=== PATIENT | female | born 1975 | race Caucasian/White ===

== ENCOUNTER 2018-10-16 19:26 | Emergency (ER) | payer OTHER ==
--- NOTE | 2018-10-16 20:17 | UC ---
Abdominal Pain Female HPI - HPI Summary HPI Summary: Patient is a 43 year old woman , who present today to the urgent care with upper abdominal pain for past 2 days. she reports that in is mainly located in the epigastrium and there is associated nausea but she hasn't had no episode of vomiting until she was in the urgent care and had one episode of nonbilious non-bloody vomiting.describes it as a burning pain. Denied any different food intake from others in the family and nobody else is sick and does not feel it is food poisoning. Had some loose bowel movements but nothing significant. She has been able to take and hold down food and liquids by mouth. it slightly got better during the day today but got worse again in the afternoon. She feels full after eating. Denies any urinary or vaginal symptoms. no fever reported - History of Current Complaint Chief Complaint: UCGI Stated Complaint: BACK PAIN,NAUSEA Time Seen by Provider: 10/16/18 20:00 Hx Obtained From: Patient ?: No - IUD Pain Intensity: 7 Allergies/Adverse Reactions: Allergies Allergy/AdvReac Type Severity Reaction Status Date / Time No Known Allergies Allergy Verified 10/16/18 19:51 PMH/Surg Hx/FS Hx/Imm Hx - Additional Past Medical History Additional PMH: GERD Family history is noncontributory Previously Healthy: Yes - Surgical History Surgical History: Yes Surgery Procedure, Year, and Place: csection - Social History Alcohol Use: Occasionally Substance Use Type: None Smoking Status (MU): Never Smoked Tobacco Review of Systems All Other Systems Reviewed And Are Negative: Yes Constitutional: Positive: Negative Skin: Positive: Negative Eyes: Positive: Negative ENT: Positive: Negative Respiratory: Positive: Negative Cardiovascular: Positive: Negative Gastrointestinal: Positive: Abdominal Pain - epigastric area, Vomiting, Diarrhea , Nausea Genitourinary: Positive: Negative. Negative: Dysuria, Hematuria, Frequency Motor: Positive: Negative Neurovascular: Positive: Negative Musculoskeletal: Positive: Negative Neurological: Positive: Negative Psychological: Positive: Negative Is Patient Immunocompromised?: No Physical Exam - Summary Physical Exam Summary: Physical Exam: Const: Appears well. No signs of apparent distress present. Alert and oriented x 3. Musculo: Walks with a normal gait. Head/Face: Atraumatic, normocephalic on inspection. Eyes: EOMI and PERRLA in both eyes. Conjunctivae clear. No discharge noted ENT: Hearing normal Respiratory: Respirations are unlabored. Lungs clear to auscultation bilaterally, no wheezing , rhonchi or rales noted . CVS: Regular rate and Rhythm, S1S2 normal , no murmurs identified. Extremities: Peripheral circulation is grossly normal. Pulses 2+ Abdomen : Soft . there is tenderness to palpation in the epigastric area mainly. nondistended , Bowel sounds present . mild guarding but no rebound tenderness or rigidity noted. no McBurney point tenderness noted. Rajan's sign is negative. Skin: No lesions or rash located on the upper extremities or on the lower extremities. Neuro: Cranial nerves II to XII intact, motor and sensory intact. DTR Intact bilaterally. Mood is normal. Affect is normal. Triage Information Reviewed: Yes Vital Signs: Initial Vital Signs Temp 98.0 F 10/16/18 19:42 Pulse 52 10/16/18 19:42 Resp 20 10/16/18 19:42 BP 142/85 10/16/18 19:42 Pulse Ox 100 10/16/18 19:42 Vital Signs Reviewed: Yes Abd Pain Female Course/Dx - Course Course Of Treatment: During the visit today, we discussed the findings which appeared to be consistent with gastroenteritis which can be viral. does not appear to be cholecystitis. She was given 1 dose of Zofran and dose of pantoprazole and famotidine. she still continued to have some nausea but wants to go home and feels fine to go home. she was given 1 more dose of Zofran to take home. She has omeprazole at home which she will start taking. I have prescribed Zantac as well to the pharmacy. We discussed her urinalysis results 3+ blood and 1+ leukoesterase positive. She feels that she is spotting so that could be the reason for blood on urine and she denies any urinary symptoms so we plan to hold off treating at this time. If culture comes back positive then she can be treated at that time. Patient expressed understanding . - Differential Dx/Diagnosis Provider Diagnosis: Gastritis, Gastroenteritis Discharge - Sign-Out/Discharge Documenting (check all that apply): Patient Departure All imaging exams completed and their final reports reviewed: No Studies - Discharge Plan Condition: Stable Disposition: HOME Prescriptions: Ondansetron TAB* [Zofran 4 MG Tab*] 4 mg PO Q6H PRN 7 Days #30 tab PRN Reason: Nausea Ranitidine TAB (NF) [Zantac TAB (NF)] 150 mg PO BID 15 Days #30 tab Patient Education Materials: Gastroenteritis (ED) Referrals: Estela Young MD [Primary Care Provider] - 2 Days Additional Instructions: Please start taking the medication as prescribed to the pharmacy . Follow up with your primary care doctor in 2 -3 days Patients blood pressure slightly high in Urgent care today , plan follow up with PCP for better control within a month Return to Urgent care / ER if symptoms get worse. - Billing Disposition and Condition Condition: STABLE Disposition: Home
[2018-10-16] MEDS ORDERED: Ondansetron ODT TAB* 4 MG PO ONE ×2 (20:31→21:38)
[2018-10-16] MEDS ORDERED: Pantoprazole TAB * 40 MG TAB PO ONE (20:31)
[2018-10-16] MEDS ORDERED: Famotidine TAB* 20 MG PO ONE (21:39)
[2018-10-16 21:51] VITALS: BP 148/82
== END 2018-10-16 21:50 | disposition home or self-care (01) ==
LOC: UCEAST 19:26
DX: K29.70 Gastritis, unspecified, without bleeding (principal); K52.9 Noninfective gastroenteritis and colitis, unspecified; R11.0 Nausea; K21.9 Gastro-esophageal reflux disease without esophagitis
CPT/HCPCS: 81003; 87086; 99213; A9270-GY; G0463

== ENCOUNTER 2018-10-25 18:30 | Emergency (ER) | payer OTHER ==
--- OUTSIDE RECORDS SUMMARY | 2018-10-25 18:34 | XMS REPORT | Continuity of Care Document ---
:1975 External Reference #:[id number] Author Name JAIME Soto Address [address] [facility] [place] [address] Care Team Providers Name Role Phone Estela Yuong Care Team Information Typesetting Machine Operator/Tender Unavailable Estela Young Primary Care Physician Unavailable Payers Date Identification Numbers Payment Provider Subscriber Effective: 2017 Policy Number: [id number] [facility] Casey Norton Group Number: [id number] [id number] Group Name: [place] [address] PayID: [id number] Advance Directives Description No Information Available Problems Active Problems Provider Date Intrinsic asthma without status asthmaticus Estela Young M.D. Onset: Family History Date Family Member(s) Observation Comments Father HTN Mother Obesity/ Diabetes/ Depression Number of Children 1 First Daughter healthy. Number of Siblings Siblings: 2 Paternal Grandmother due to Heart Disease () Maternal Grandfather due to Lung Cancer () Maternal Grandmother due to Breast Cancer () Maternal Grandmother due to Lung Cancer () Social History Type Date Description Comments Sex Unknown Education Highest level of education completed is a master's degree Marital Status Patient is Living Situation Lives with spouse and daughter Occupation [employer] Tobacco Use Start: Unknown occ cig 2 a week or less ETOH Use Currently consumes 2 beers three times alcohol a week. Tobacco Use Start: Unknown Nonsmoker Smoking Status Reviewed: 02/03/18 Nonsmoker Exercise Type/Frequency Exercises regularly Current Seat Belt/Car Seat Always uses a seat belt Allergies, Adverse Reactions, Alerts Active Allergies Reaction Severity Comments Date NKDA 03/02/2012 Bee Sting 04/26/2006 Medications Active Medications SIG Qnty Indications Ordering Provider Date Combivent Respimat 1 puff every 4 12gm Bairon Gonzales 04/08/2018 hours as needed MD Nazanin 20-100mcg/Act Aerosol cough Flovent HFA 1 puff twice a 12gm Bairon Gonzales 04/08/2018 110mcg/Act day MD Nazanin Aerosol Spacer For Mdi use with mdi Bairon Gonzales 04/08/2018 MD Nazanin Xanax 1 po 30-60 min 10tabs [facility], 11/16/2017 0.5mg Tablets prior to flying Afnp-C Ranitidine HCL 1 by mouth every 30tabs [facility], 06/04/2017 300mg day as needed Afnp-C Tablets Ventolin HFA 2 puffs qd-qid 1units J20.0 [facility], 04/24/2015 prn wheeze, sob Afnp-C 108(90Base) mcg/Act Aerosol J20.9 Sertraline HCL take one /half to 30tabs F32.9 [facility], 07/30/2009 50mg Tablets one tablet by Afnp-C mouth every day Ondansetron HCL 1 by mouth every Unknown 4mg Tablets 6h as needed nausea History Medications Azithromycin take [address] tablets [address]20.[address], 12/30/2016 - 250mg by mouth today [facility] 11/16/2017 Tablets then take 1 tablet daily for next 4 days Ranitidine HCL 1 by mouth every 30tabs [facility] 11/30/2016 - 300mg day prn Carolee Bautista-C 12/30/2016 Tablets Carafate 1 by mouth three 90tabs K25.[address], 07/17/2015 - 1gm Tablets times a day [facility] 11/30/2016 prior to meals Diazepam 1 by mouth twice 5tabs Z30.8 Kavita 04/12/2015 - 2mg Tablets a day as needed Nadia [facility] 07/17/2015 anxiety Pantoprazole Sodium 1 by mouth every 30tabs K21.9 Esme Franklin, 2014 - day Afnp-C 11/30/[address] Millard 1 by mouth x1 1tabs [facility] 11/20/2014 - 150mg Damien Bautista 11/21/2014 Tablets Azithromycin 2 po today. 1 6tabs 466.0 Lorena Domingo, 06/03/2013 - 250mg po daily x 4 [employer] 02/05/2014 Tablets Please Excuse From Lyme disease. 088.81 Estela Christen 11/19/2012 - Work. Medical Diana Young 06/03/2013 Excuse. Doxycycline 1 po bid ( 12 14tabs Estela Christen 11/06/2012 - Monohydrate hours apart) Diana Young 06/03/2013 100mg can eat 1 hour Tablets later. 3 weeks. Azithromycin 2 po today. 1 6tabs 466.0 Lorena Domingo, 08/18/2012 - 250mg po daily x 4 [employer] 11/04/2012 Tablets Medrol Dosepak take as directed 1PK 493.12 Estela Velásquez 06/12/2011 - 4mg Diana Young 03/02/2012 Tablets Azithromycin 2 po today. 1 6tabs 493.12 Estela Christen 06/12/2011 - 250mg po daily x 4 Diana Young 03/02/2012 Tablets Azithromycin take 2 tablets 6tabs 466.0 Lorena Domingo, 05/25/2011 - 250mg by mouth today [employer] 06/12/2011 Tablets then take 1 tablet daily for next 4 days Ventolin HFA 2 puffs qd-qid 1units 466.0 Lorena Domingo, 05/25/2011 - [employer] 04/24/2015 108(90Base) mcg/ac Aerosol Zoloft 2 po qd 60tabs 311 Lornea Domingo, 02/08/2009 - 50mg Tablets [employer] 07/30/2009 Zoloft 1 1/2 tab pO qd 45tabs [facility] 10/31/2008 - 50mg Tablets Damien Bautista 02/08/2009 Vitamins 1 po qd 100units Payton 06/27/2008 - Damien Bautista 06/12/2011 Cleocin T apply To 60gm Payton 08/18/2006 - 1% Gel Affected Area qd Damien Bautista 10/11/2012 Cleocin-T apply qd to 60gm Payton 08/18/2006 - 1% Gel affected area MarcoslincolnjayjayDamien 05/08/2014 Azelex wash 30gm Payton 06/30/2006 - 20% Cream face/dry/then LilyDamien 03/07/2015 apply small amount to face every day to twice a day Fluoxetine 2 po qam 120caps Payton 04/26/2006 - 20mg MarcoslincolnjayjayDamien 10/31/2008 Capsules Albuterol Mdi 2 Puffs Q4H prn 1units 493.00 Esme Franklin, 04/26/2006 - Cough Or Wheeze Damien 05/25/2011 Minocycline 1 po bid 60caps Payton 04/26/2006 - 100mg Jean PauljayjayDamien 12/04/2008 Capsules Immunizations CPT Code Status Date Vaccine Lot # [id number] Given 11/16/2017 Tetanus And Diptheria Adult Preservative Free [id number] >[id number] Given 03/27/2008 Tdap Tetanus, W Pertussis [id number] Vital Signs Date Vital Result Comment 10/19/2018 9:17am BP Systolic 110 mmHg BP Diastolic 60 mmHg Heart Rate 78 /min Body Temperature 98.8 F Respiratory Rate 16 /min Height 64.5 inches 5'4.50" Weight 150.12 lb BMI (Body Mass Index) 25.4 kg/m2 05/02/2018 8:48am BP Systolic 104 mmHg BP Diastolic 64 mmHg Heart Rate 64 /min Body Temperature 97.0 F Respiratory Rate 16 /min Weight 152.00 lb 04/08/2018 8:35am BP Systolic 110 mmHg BP Diastolic 70 mmHg Heart Rate 68 /min Body Temperature 98.9 F Respiratory Rate 22 /min O2 % BldC Oximetry 100 % Ra Weight 149.50 lb 02/03/2018 8:51am BP Systolic 110 mmHg BP Diastolic 70 mmHg Heart Rate 60 /min Body Temperature 97.9 F Respiratory Rate 16 /min Height 64.5 inches 5'4.50" Weight 146.00 lb BMI (Body Mass Index) 24.7 kg/m2 11/16/2017 10:21am BP Systolic 112 mmHg BP Diastolic 74 mmHg Heart Rate 64 /min Body Temperature 98.1 F Height 64.5 inches 5'4.50" Weight 146.00 lb BMI (Body Mass Index) 24.7 kg/m2 12/30/2016 3:53pm BP Systolic 102 mmHg BP Diastolic 78 mmHg Heart Rate 72 /min Body Temperature 98.6 F Height 64.5 inches 5'4.50" Weight 149.00 lb BMI (Body Mass Index) 25.2 kg/m2 11/30/2016 9:16am BP Systolic 102 mmHg BP Diastolic 60 mmHg Heart Rate 64 /min Body Temperature 99.0 F Respiratory Rate 16 /min Height 64.5 inches 5'4.50" Weight 148.38 lb BMI (Body Mass Index) 25.1 kg/m2 07/31/2015 4:28pm BP Systolic 104 mmHg BP Diastolic 62 mmHg Heart Rate 72 /min Body Temperature 98.2 F Respiratory Rate 16 /min Height 64.5 inches 5'4.50" Weight 156.50 lb BMI (Body Mass Index) 26.4 kg/m2 07/17/2015 4:21pm BP Systolic 90 mmHg BP Diastolic 60 mmHg Heart Rate 60 /min Body Temperature 98.1 F Respiratory Rate 16 /min Height 64.5 inches 5'4.50" Weight 156.50 lb BMI (Body Mass Index) 26.4 kg/m2 05/06/2015 4:16pm BP Systolic 124 mmHg BP Diastolic 80 mmHg Heart Rate 68 /min Body Temperature 97.9 F Respiratory Rate 16 /min Height 64.5 inches 5'4.50" Weight 154.00 lb BMI (Body Mass Index) 26.0 kg/m2 04/12/2015 3:26pm BP Systolic 126 mmHg BP Diastolic 82 mmHg Heart Rate 66 /min Body Temperature 99.0 F Respiratory Rate 16 /min Height 64.5 inches 5'4.50" Weight 154.25 lb BMI (Body Mass Index) 26.1 kg/m2 03/07/2015 1:52pm BP Systolic 112 mmHg BP Diastolic 70 mmHg Heart Rate 62 /min Body Temperature 98.7 F Respiratory Rate 16 /min Height 64.5 inches 5'4.50" Weight 151.00 lb BMI (Body Mass Index) 25.5 kg/m2 11/20/2014 3:26pm BP Systolic 90 mmHg BP Diastolic 58 mmHg Heart Rate 64 /min Body Temperature 97.5 F Respiratory Rate 16 /min Height 64.5 inches 5'4.50" Weight 147.00 lb BMI (Body Mass Index) 24.8 kg/m2 05/08/2014 2:31pm BP Systolic 92 mmHg BP Diastolic 62 mmHg Heart Rate 68 /min Body Temperature 97.8 F Height 64.5 inches 5'4.50" 02/05/2014 9:35am BP Systolic 102 mmHg BP Diastolic 64 mmHg Heart Rate 60 /min Respiratory Rate 16 /min Height 64.5 inches 5'4.50" Weight 135.00 lb BMI (Body Mass Index) 22.8 kg/m2 06/03/2013 9:05am BP Systolic 100 mmHg BP Diastolic 70 mmHg Heart Rate 72 /min Body Temperature 98.0 F Respiratory Rate 16 /min Height 64.5 inches 5'4.50" Weight 150.00 lb BMI (Body Mass Index) 25.3 kg/m2 11/19/2012 10:08am BP Systolic 98 mmHg BP Diastolic 60 mmHg Heart Rate 64 /min Body Temperature 98.8 F Height 64.5 inches 5'4.50" Weight 146.00 lb BMI (Body Mass Index) 24.7 kg/m2 11/04/2012 10:42am BP Systolic 118 mmHg BP Diastolic 70 mmHg Heart Rate 80 /min Body Temperature 99.2 F Respiratory Rate 20 /min O2 % BldC Oximetry 94 % Height 64.5 inches 5'4.50" Weight 145.00 lb BMI (Body Mass Index) 24.5 kg/m2 08/18/2012 3:59pm BP Systolic 108 mmHg BP Diastolic 70 mmHg Heart Rate 70 /min Body Temperature 98.4 F Respiratory Rate 18 /min Height 64.5 inches 5'4.50" Weight 149.00 lb BMI (Body Mass Index) 25.2 kg/m2 03/02/2012 4:42pm BP Systolic 104 mmHg BP Diastolic 70 mmHg Heart Rate 66 /min Body Temperature 98.9 F Height 64.5 inches 5'4.50" Weight 144.00 lb BMI (Body Mass Index) 24.3 kg/m2 06/12/2011 1:47pm BP Systolic 90 mmHg BP Diastolic 56 mmHg Heart Rate 68 /min Body Temperature 98.4 F Respiratory Rate 20 /min Height 64.5 inches 5'4.50" Weight 153.00 lb BMI (Body Mass Index) 25.9 kg/m2 05/25/2011 2:12pm BP Systolic 100 mmHg BP Diastolic 70 mmHg Heart Rate 68 /min Body Temperature 98.2 F Height 64.5 inches 5'4.50" Weight 152.00 lb BMI (Body Mass Index) 25.7 kg/m2 11/18/2010 10:09am BP Systolic 100 mmHg BP Diastolic 70 mmHg Heart Rate 60 /min Body Temperature 98.6 F Height 64.5 inches 5'4.50" Weight 145.00 lb BMI (Body Mass Index) 24.5 kg/m2 11/19/2009 1:10pm BP Systolic 90 mmHg BP Diastolic 60 mmHg Heart Rate 72 /min Body Temperature 99.3 F Respiratory Rate 20 /min Weight 150.00 lb 02/08/2009 3:32pm BP Systolic 100 mmHg BP Diastolic 70 mmHg Heart Rate 72 /min Weight 141.00 lb 12/04/2008 9:22am BP Systolic 100 mmHg BP Diastolic 62 mmHg Heart Rate 68 /min Height 64.5 inches 5'4.50" Weight 146.00 lb BMI (Body Mass Index) 24.7 kg/m2 06/27/2008 6:19pm BP Systolic 110 mmHg BP Diastolic 68 mmHg Heart Rate 64 /min Height 64.5 inches 5'4.50" Weight 148.00 lb BMI (Body Mass Index) 25.0 kg/m2 03/27/2008 2:36pm BP Systolic 100 mmHg BP Diastolic 70 mmHg Heart Rate 68 /min Body Temperature 98.9 F Height 64.5 inches 5'4.50" Weight 138.00 lb BMI (Body Mass Index) 23.3 kg/m2 09/21/2007 5:58pm BP Systolic 102 mmHg BP Diastolic 60 mmHg Heart Rate 66 /min Height 64.5 inches 5'4.50" Weight 140.00 lb BMI (Body Mass Index) 23.7 kg/m2 05/27/2007 4:27pm BP Systolic 122 mmHg BP Diastolic 70 mmHg Body Temperature 99.6 F Height 64.5 inches 5'4.50" Weight 142.00 lb BMI (Body Mass Index) 24.0 kg/m2 09/29/2006 7:33pm BP Systolic 100 mmHg BP Diastolic 60 mmHg Heart Rate 72 /min Height 64.5 inches 5'4.50" Weight 150.00 lb BMI (Body Mass Index) 25.3 kg/m2 08/18/2006 6:05pm BP Systolic 102 mmHg BP Diastolic 70 mmHg Heart Rate 68 /min Height 64.5 inches 5'4.50" Weight 150.00 lb BMI (Body Mass Index) 25.3 kg/m2 06/30/2006 8:12pm BP Systolic 100 mmHg BP Diastolic 60 mmHg Heart Rate 72 /min Respiratory Rate 12 /min Height 64.5 inches 5'4.50" 04/26/2006 6:43pm BP Systolic 102 mmHg BP Diastolic 70 mmHg Heart Rate 80 /min Height 64.5 inches 5'4.50" Weight 149.00 lb BMI (Body Mass Index) 25.2 kg/m2 Results Test Date Facility Test Result H/L Range Note Ua - Micro (a) 10/19/2018 [facility] Appearance yellow (607)- - Color clear Glucose, Urine ([facility]) neg Bilirubin neg Ketones neg SP Grav 1.010 Blood mod # PH 6.5 Protein neg Urobil 0.2 Nitrite neg Leukocytes ([facility]) neg Hyaline - /Lpf Granular - /Lpf WBC ([facility]) 1-2 # RBC 6-8 # Mucus ([facility]) - /Lpf Epith few /Lpf # Bacteria trace /Hpf # Amorphous (a/[facility]) - /Lpf Crystals, Fluid (a/CMC/CTX) - Z#Comments - Urine Culture And 10/16/2018 [facility] Urine Culture SEE RESULT BELOW 1, 2 Sensitivities Poc Urinalysis 10/16/2018 [facility] Poc Glucose, Negative Negative Urine Poc Bilirubin, Urine Negative Negative Poc Ketone, Urine Negative Negative Poc Specific Tarpley, Urine 1.010 N 1.010-1.030 Poc Blood, Urine 3+ Abnormal Negative Poc pH, Urine 5.0 N 5-9 Poc Protein, Urine Negative Negative Poc Urobilinogen, Urine 0.2 Negative Poc Nitrite, Urine Negative Negative Poc Leukocytes, Urine 1+ Abnormal Negative Poc Color, Urine Yellow Poc Clarity, Urine Clear 3 Laboratory test 02/03/2018 [facility] Cytology Thinprep SEE RESULT 4 [place] [place] [place] BELOW Comprehensive 11/16/2017 [facility]ore([facility]) Sodium 141 mEq/L 134-14 Metabolic Prof 9 Potassium 4.1 mEq/L 3.6-5.5 Chloride 103 mEq/L 94-112 Carbon Dioxide 27 mEq/L 21-32 Glucose 86 mg/dL 70-105 BUN 9 mg/dL 6-26 Creatinine 0.5 mg/dL Low 0.6-1.4 BUN/Creat Ratio 18.0 CALC 8.0-36.0 Calcium 9.3 mg/dL 8.6-10.2 Total Protein 7.3 g/dL 6.4-8.3 Albumin 4.5 g/dL 3.8-5.5 Globulin 2.8 g/dL 2.0-4.8 A/G Ratio 1.6 CALC 0.6-2.3 Alk. Phosphatase 34 U/L 30-110 Alt (SGPT) 12 U/L 7-35 Ast (Sgot) 19 U/L 5-34 Total Bilirubin 0.5 mg/dL 0.2-1.3 GFR Non- >60 ml/min/1.73m^ >=60 GFR >60 ml/min/1.73m^ >=60 CBC Electronic a 11/16/2017 Randall Lenore([facility]) WBC 8.8 x10^3/UL 4.0- 10.0 RBC 4.22 x10^6/UL 3.93-6.00 HGB 13.7 g/dL 12.0-17.0 HCT 41 % 35-50 MCV 97.6 fL High 80.0-95.0 5 MCH 32.5 pg High 25.6-32.2 MCHC 33.3 g/dL 32.2-36.0 RDW-CV 12.6 % 11.6-14.4 PLT 275 x10^3/UL 163-400 MPV 10.7 fL 9.4-12.4 Bianca# 6.50 x10^3/UL High 1.56-6.13 Lymph# 1.47 x10^3/UL 1.18-3.74 Newberry# 0.54 x10^3/UL 0.24-0.82 Eos # 0.2 x10^3/UL 0.0-0.5 Baso # 0.06 x10^3/UL 0.01-0.08 Bianca% 74.1 % High 34.0-70.0 Lymph % 16.8 % Low 20.0-52.0 Newberry% 6.2 % 5.0-12.0 Eos% 2.1 % 0.7-7.0 Baso% 0.7 % 0.1-1.2 Laboratory test 09/27/2015 [facility] Clotest SEE RESULT 6 finding BELOW H.Pylori, Igg/Iga 07/17/2015 [facility] H. pylori, IgA <9.0 units 0.0-8.9 7, [address] [place] [address] (607)- - H. pylori, IgG Abs <0.9 U/mL 0.0-0.8 9 Complete Blood Count 07/17/2015 P[facility] Lenore(a) WBC 8.5 x10^3/UL 3.6 -9.6 RBC 3.82 x10^6/UL Low 3.90-5.70 HGB 11.5 g/dL Low 12.1-17.2 HCT 34 % Low 36-50 MCV 90.0 fL 82.2-97.4 MCH 30.2 pg 27.6-33.3 MCHC 33.6 g/dL 33.0-35.5 RDW 16.0 % High 11.6-13.7 PLT 280 x10^3/UL 150-400 MPV 7.9 fL 7.4-10.4 Gran # 6.2 x10^3/UL 1.5-7.2 Lymph# 2.0 x10^3/UL 0.7-4.9 Newberry# 0.3 x10^3/UL 0.1-0.9 Gran % 71.5 % 42.2-75.2 Lymph % 24.7 % 20.5-51.1 Newberry% 3.8 % 1.7-9.3 Laboratory test 05/17/2015 [facility] Surgical SEE RESULT 10 finding Pathology BELOW Complete Blood 11/27/2014 P[facility] Lenore(fma) WBC 5.8 x10^3/UL 3.6-9.6 Count RBC 3.99 x10^6/UL 3.90-5.70 HGB 12.0 g/dL Low 12.1-17.2 HCT 36 % 36-50 MCV 91.0 fL 82.2-97.4 MCH 30.1 pg 27.6-33.3 MCHC 33.2 g/dL 33.0-35.5 RDW 15.7 % High 11.6-13.7 PLT 276 x10^3/UL 150-400 MPV 7.4 fL 7.4-10.4 Gran # 3.6 x10^3/UL 1.5-7.2 Lymph# 1.9 x10^3/UL 0.7-4.9 Newberry# 0.3 x10^3/UL 0.1-0.9 Gran % 60.8 % 42.2-75.2 Lymph % 34.0 % 20.5-51.1 Newberry% 5.2 % 1.7-9.3 Comprehensive Metabolic 11/27/2014 Prakash Lenore([facility]) Sodium 134 mEq/L 134-149 Prof Potassium 4.2 mEq/L 3.6-5.5 Chloride 94 mEq/L 94-112 Carbon Dioxide 24 mEq/L 21-32 Glucose 90 mg/dL 70-105 BUN 13 mg/dL 6-26 Creatinine 0.6 mg/dL 0.6-1.4 BUN/Creat Ratio 21.7 CALC 8.0-36.0 Calcium 8.8 mg/dL 8.6-10.2 Total Protein 7.0 g/dL 6.4-8.3 Albumin 4.3 g/dL 3.8-5.5 Globulin 2.7 g/dL 2.0-4.8 A/G Ratio 1.6 CALC 0.6-2.3 Alk. Phosphatase 25 U/L Low 30-110 11 Alt (SGPT) 10 U/L 7-35 Ast (Sgot) 15 U/L 5-34 Total Bilirubin 0.3 mg/dL 0.2-1.3 Lipid Profile 11/27/2014 Prakash Lenore([facility]) Cholesterol 149 mg/dL 120- 200 Triglycerides 78 mg/dL 30-200 HDL Cholesterol 54 mg/dL 30-85 LDL (Calculated) 79 CALC 0-129 VLDL Cholesterol 16 mg/dL 0-50 HDL Risk Factor 2.8 CALC 0.0-4.4 Laboratory test 11/27/2014 Prakash Lenore([facility]) TSH 1.36 mIU/L 0.50-6.00 12 finding Laboratory test 11/20/2014 [facility] Cytology SEE RESULT 13 finding BELOW Influenza A&B-fma 05/08/2014 [facility] Medicine Influenza A negative (607)- - Influenza B negative Vitamin D, 25 Hydroxy 11/19/2012 [facility] 25-Hydroxy Vitamin D2 <4.0 ng/mL 25-Hydroxy Vitamin D3 36 ng/mL 25-Hydroxy Vitamin D Total 36 ng/mL 14 Laboratory test 11/19/2012 Prakash Lenore([facility]) B12 789 pg/mL 230-1050 finding Ehrlichia Igg & 11/08/2012 [facility] Anaplasma <1:64 <1:64 15 Igm Abs phagocytophila IgG titer Ehrlichia chaffeensis IgG AB <1:64 titer <1:64 16 Laboratory test finding 11/08/2012 [facility] Lyme Disease Serology Positive Negative 17 Babesiosis Evaluation <1:64 titer <1:64 18 Lyme Western Blot 11/08/2012 [facility] Lyme Disease IgG Ab WB Negative Negative Lyme Disease IgG Bands Present No bands detecte <SEE NOTE> kDa 19 Lyme Disease IgM Ab WB Positive Negative Lyme Disease IgM Bands Present p41, p39, p23, kDa Lyme Disease Interpretation See Comment 20 CBC Electronic ([facility]) 11/08/2012 [facility] WBC 4.5 3.6-9.6 (607)- - RBC 3.95 3.90-5.70 Hemoglobin (Fma/[facility]) 11.7 g/dL Low 12.1 - 17.2 Hematocrit (a/CMC/CTX) 35.6 % Low 36.1 - 50.3 Platelets 239 10^3/ul 150-400 Lymph% 40.0 20.5-51.1 Mixed% 5.1 Neutrophils % 54.9 Mean Corpuscular Vol 90 82.2-97.4 Mean Corpuscular Hemoglobin 29.6 27.6-33.3 Mean Corpuscular Hemo Concen 32.9 32.0-36.0 RDW 12.2 11.6-13.7 Mean Platelet Volume 7.1 6.5-11.0 Comprehensive Metabolic 11/08/2012 Randall Lenore([facility]) Albumin 4.3 g/dL 3.8-5.5 Prof Alk. Phos. 62 U/L 30-110 Alt (SGPT) 55 U/L High 7-35 Ast (Sgot) 41 U/L High 5-34 BUN 7 mg/dL 6-26 Calcium 9.0 mg/dL 8.6-10.2 Chloride 94 mEq/L 94-112 Creatinine 0.6 mg/dL 0.6-1.4 Carbon Dioxide 26 mEq/L 21-32 Glucose 146 mg/dL High 70-105 21 Sodium 134 mEq/L 134-149 Total Bilirubin 0.3 mg/dL 0.2-1.3 Total Protein 7.0 g/dL 6.3-8.1 Potassium 3.5 mEq/L Low 3.6-5.5 Globulin 2.7 g/dL 2.0-4.8 A/G Ratio 1.6 Calc 0.6-2.3 BUN/Creat Ratio 11.9 Calc 8.0-36.0 Influenza A&B 11/04/2012 [facility] Influenza A NEG (607)- - Influenza B NEG Ua - Non Micro (Fma) 11/18/2010 [facility] Appearance CLEAR (607)- - Color YELLOW Glucose NEG Bilirubin NEG Ketones NEG SP Grav 1.010 Blood NEG PH 7.0 Protein NEG Urobil 0.2 Nitrite NEG Leukocytes ([facility]ma/[facility]) NEG Laboratory test 11/18/2010 [facility] Thin Prep SEE NOTE 22 finding 28 [facility] W/HPV(Lsil/VIRY/Asc) [place], [place] [id number] [phone] Vaginitis Dna 11/18/2010 [facility] Screen Trichomonas NEGATIVE Probe Screen 28 [facility] Vaginalis Dna [place], [place] [id number] [phone] Screen Gardnerella Vaginalis Dna NEGATIVE Screen Gege Species Dna NEGATIVE Ua - Non Micro (Fma) 03/27/2008 [facility] Appearance CLEAR (607)- - Color YELLOW Glucose NEG Bilirubin NEG Ketones NEG SP Grav 1.015 Blood NEG PH 7.0 Protein NEG Urobil 0.2 Nitrite NEG Leukocytes (Fma/[facility]) NEG Laboratory test 03/27/2008 [facility] Thin Prep SEE NOTE 23 finding 28 [facility] W/HPV(Lsil/VIRY/Asc) [place], [place] [id number] [phone] CBC 10/08/2006 [facility] WBC 5.7 3.6- Electronic-ALL (607)- - 9.6 Lab Compani RBC 3.96 3.90-5.70 Hemoglobin (Fma/[facility]/CTX) 12.8 g/dL 12.1 - 17.2 Hematocrit (Fma/CMC/CTX) 37 % 36.1 - 50.3 Mean Corpuscular Vol 94.5 82.2-97.4 Mean Corpuscular Hemaglobin 32.2 27.6-33.3 Mean Corpuscular Hemo Concen 34.1 33.0-36.0 RDW 12.1 11.6-13.7 Platelets 231 10^3/ul 150-400 Mean Platelet Volume 9.4 7.4-10.4 Neutrophils % - Lymphocytes % 27.0 % 20.5 - 51.1 Monocytes % 7.4 % 1.7-9.3 Eosinophil - Basophil% - Abs Neutrophils - Abs Lymphs - Abs Mononuclear - Abs Eosinophils - Abs Basophils - Basic Metabolic-ALL 10/08/2006 [facility] Glucose, Serum 87 mg/dL 70-105 [facility] (607)- - (Fma/CMC/CTX) BUN (Fma/[facility]) 11 mg/dL 6-26 Creatinine (Fma/[facility]/CTX) 0.6 mg/dL 0.6-1.4 Sodium 135 134-149 Potassium 4.3 3.6-5.5 Chloride 102 mEq/L 94-112 Co2 26 21-32 Calcium (Fma/[facility]) 8.6 mg/dL 8.6-10.2 Lipid Panel-ALL 10/08/2006 [facility] Cholesterol 139 mg/dL 120- 200 [facility] (607)- - (Fma/[facility]) HDL-Chol 49 mg/dL 30-85 Triglyceride 58 mg/dL 30-200 LDL/HDL Chol. Ratio (F/C/CTX) - Chol./HDL Ratio (Fma/CMC/CTX) - Low 30-85 LDL, Calculated ([facility]) 79 mg/dL 0-129 HDL Risk Factor (Fma) 2.8 CALC Low 4.2-7.0 Laboratory test 10/08/2006 [facility] Free T4 0.86 ng/dL 0.75-1.54 finding (607)- - (Fma/[facility]) TSH (Fma/[facility]) 1.28 uIU/ml 0.5-6.0 GC/Chlamydia Probe, 09/29/2006 [facility] Chlamydia NEGATIVE Urine 28 [facility] [place] [address] [phone] GC Amplified Probe NEGATIVE Laboratory test 09/29/2006 [facility] Thinprep Pap SEE IMAGE finding [address] [place] [address] VIRY/ASCUS [phone] Ua - Micro (Fma) 09/29/2006 [facility] Appearance CLEAR (607)- - Color LT YELLOW Glucose NEG Bilirubin NEG Ketones NEG SP Grav <=1.005 Blood 1+ LMP 2 WKS Ago PH 7.5 Protein, Random Urine NEG Urobil 0.2 Nitrite NEG Leukocytes (Fma/[facility]) NEG Hyaline - /Lpf Granular - /Lpf WBC (Fma,[facility]) 1-2 RBC, Fluid 5-7 Mucus - /Lpf Epith OCC /Lpf Bacteria TR /Hpf Amorphous - /Lpf Crystals, Urine (Fma/[facility]/CTX) - /Lpf Misc - 1 [id number] 2 SEE RESULT BELOW Name: CASEY NORTON : [address]: Minor Carrasco MD Acct: [id number] Unit: [id number] AGE: 43 Location: [facility] Re10/16/18 SEX: F Status: DEP ER SPEC: [id number] LUZ: 10/16/[address] [facility] [address]: Minor Carrasco MD REQ: [id number] RECD: 10/17/18 STATUS: MUSHTAQ ALEMAN DR: Estela Young MD _ SOURCE: URINE SPDESC: ORDERED: Urine Culture COMMENTS: [id number] Procedure Result Reported Site Urine Culture Final 10/18/18- 1150 ML No Growth (<1,000 CFU/mL) * ML - Main Lab . END OF REPORT DEPARTMENT OF PATHOLOGY, [address] [place] [address] Peng Harper M.D. Director [facility] # [id number] Medical Receptionist Medical Assistant: [id number] SEE RESULT BELOW Name: CASEY NORTON : [address]: Estela Young MD Acct: [id number] Unit: [id number] AGE: 42 Location: [facility] Re02/03/18 SEX: F Status: REG REF SPEC: [id number] LUZ: 02/03/18 [facility] [address]: Estela Young MD REQ: [id number] RECD: 02/03/18 STATUS: SOUT _ ORDERED: TP IMAGE ANALYS, HPV/Thin Prep, HPV 16/18 GENE COMMENTS: [id number] Negative for Intraepithelial lesion or Malignancy Date Time Test Result Flag (u) Normal Range 02/03/18 0958 @ HPV RNA RFLX GE Negative Negative @ @ The high-risk HPV types detected by the assay include: 16, @ 18, 31, 33, 35, 39, 45, 51, 52, 56, 58, 59, 66, and 68. A. Ectocervical/Endocervical Specimen Adequacy: Satisfactory of evaluation Transformation zone component identified Patient Information: HPV: High risk HPV RNA testing regardless of pap results. HPV 16/18 Genotype Reflex Actual Specimen Date: 02/03/18 LMP If Unknown: Last Menstrual Period Not Given. Spec Date if unknown: 2014 ?: N Post Menopausal?: N Hysterectomy?: N Previous Abnormal Pap Smears?:N Signed by and Reported on: Tex LUIS Griffith (ASCP) 1439 This Pap test was evaluated with the assistance of the [employer] Test Imaging System. Due to cytologic findings at the sausage maker microscope, comprehensive manual rescreening by a Pneumatic Tool Repairer may be required. The Pap Smear is a screening test designed to aid in the detection of premalignant and malignant conditions of the uterine cervix. It is not a diagnostic procedure and should not be used as the sole means of detecting cervical cancer. Both false- positive and false- negative reports do occur. Depending on your risk status, a Pap smear should be obtained and evaluated every 1-3 years. END OF REPORT DEPARTMENT OF PATHOLOGY, [address] [place] [address] Peng Harper M.D. Director [facility] # [id number] 5 RESULTS VERIFIED BY REPEAT ANALYSIS 6 SEE RESULT BELOW Name: CASEY NORTON : [address]: Joe Robin MD Acct: [id number] Unit: [id number] AGE: 40 Location: [facility] Re09/27/15 SEX: F Status: REG REF SPEC: [id number] LUZ: 09/27/15-[address] [facility] [address]: Joe Robin MD REQ: [id number] RECD: 09/27/15 STATUS: MUSHTAQ ALEMAN DR: Estela Young MD _ SOURCE: GAS ANTRUM SPDESC: ORDERED: Clotest Procedure Result Reported Site Clotest Final 09/28/15- 805 ML Clotest Negative * ML - MAIN LAB ([facility]) . END OF REPORT * ML=Testing performed at Main Lab DEPARTMENT OF PATHOLOGY, [address] [place] [address] Peng Harper M.D. Director [facility] # [id number] 7 1 sst 8 Negative <9.0 Equivocal 9.0 - 11.0 Positive >11.0 9 Negative <0.9 Indeterminate 0.9 - 1.0 Positive >1.0 10 SEE RESULT BELOW Name: CASEY NORTON : [address]: Jovani Coburn MD Acct: [id number] Unit: [id number] AGE: 39 Location: [facility] Re05/17/15 SEX: F Status: REG REF SPEC: [id number] LUZ: 05/17/[address] [facility] [address]: Jovani Coburn MD REQ: [id number] RECD: 05/17/15 STATUS: ALESSANDRA ALEMAN DR: Estela Young MD _ ORDERED: LEVEL III, LEVEL IV FINAL DIAGNOSIS 1. Skin, left shoulder, excision: -- Epidermal inclusion cyst. 2. Skin, right clavicle, excision: -- Verrucoid hyperplastic actinic keratosis. CLINICAL HISTORY Irritating skin papules. GROSS DESCRIPTION 1. The specimen is received in formalin labeled, Excision Skin Lesion Left Shoulder, and consists of a 1.5 x 0.6 cm dillard hairbearing unoriented skin ellipse excised to a depth of 0.5 cm. Sectioning reveals a 0.7 x 0.4 x 0.4 cm cyst containing pasty jeter- white material. The specimen is inked, serially sectioned and account retention representative sections are submitted in one cassette. 2. The specimen is received in formalin labeled, Excision Skin Lesion Right Clavicle, and consists of a 1.3 x 0.6 cm dillard hairbearing unoriented skin ellipse excised to a depth of 0.3 cm with a central 0.4 x 0.3 x 0.2 cm dillard-jeter papule. The specimen is inked , serially sectioned and entirely submitted in one cassette. Signed (signature on file) Peng Harper MD 1243 END OF REPORT * ML=Testing performed at Main Lab DEPARTMENT OF PATHOLOGY, [address] [place] [address] Peng Harper M.D. Director [facility] # [id number] 11 RESULTS VERIFIED BY REPEAT ANALYSIS 12 FASTING 13 SEE RESULT BELOW Name: CASEY NORTON Lanre : [address]: Payton Bautista NP Acct: [id number] Unit: [id number] AGE: 39 Location: [facility] Re11/20/14 SEX: F Status: REG REF SPEC: [id number] LUZ: 11/20/14-[address] [facility] [address]: Payton Bautista NP REQ: [id number] RECD: 11/21/14-1808 STATUS: ALESSANDRA ALEMAN DR: Estela Young MD _ ORDERED: IMAGE ANALYSIS FINAL DIAGNOSIS Negative for Intraepithelial lesion or Malignancy A. Ectocervical/Endocervical Specimen Adequacy: Satisfactory of evaluation Transformation zone component identified Patient Information: HPV: Thin Layer Pap Test w/reflex to high risk HPV RNA testing when ASCUS Actual Specimen Date: 11/20/14 Last Menstrual Date: 11/10/14 Spec Date if unknown: 2012 ?: Y Post Menopausal?: N Hysterectomy?: N Previous Abnormal Pap Smears?:N Signed (signature on file) LUIS Wakefield (ASCP) 11/22 1262 This Pap test was evaluated with the assistance of the [employer] Test Imaging System. Due to cytologic findings at the sausage maker microscope, comprehensive manual rescreening by a Pneumatic Tool Repairer may be required. The Pap Smear is a screening test designed to aid in the detection of premalignant and malignant conditions of the uterine cervix. It is not a diagnostic procedure and should not be used as the sole means of detecting cervical cancer. Both false- positive and false- negative reports do occur. Depending on your risk status, a Pap smear should be obtained and evaluated every 1-3 years. END OF REPORT * ML=Testing performed at Main Lab DEPARTMENT OF PATHOLOGY, [address] [place] [address] Peng Harper M.D. Director [facility] # [id number] 14 -- REFERENCE VALUE -- 25-HYDROXY D TOTAL (D2+D3) Optimum levels in the normal population are 25-80 Test Performed by: [place] [address] Tavern Keeper: Hugo Lebron III, M.D. 15 Analyte Specific Reagent: This test was developed and its performance characteristics determined by [facility]. It has not been cleared or approved by the U.S. Food and Drug Administration. 16 Analyte Specific Reagent: This test was developed and its performance characteristics determined by [facility]. It has not been cleared or approved by the U.S. Food and Drug Administration. Test Performed by: [place] [address] Tavern Keeper: Hugo Lebron III, M.D. 17 Not diagnostic. Supplemental testing ordered by reflex. Test Performed by: [place] [address] Tavern Keeper: Hugo Lebron III, M.D. 18 Analyte Specific Reagent: This test was developed and its performance characteristics determined by [facility]. It has not been cleared or approved by the U.S. Food and Drug Administration. Test Performed by: [place] [address] Tavern Keeper: Hugo Lebron III, M.D. 19 No bands detected 20 Consistent with early infection with Borrelia burgdorferi. A new serum specimen should be submitted in 14-21 days to demonstrate seroconversion of IgG. IgM blot criteria is of diagnostic utility only during the first 4 weeks of early Lyme disease. CDC criteria require >=5 bands for IgG or >=2 bands for IgM for the Immunoblot to be considered positive. Bands (e.g.,p41) may be detected in patients without Lyme disease, and patterns not meeting the CDC criteria should be interpreted with caution. Immunoblot should be ordered only on specimens that are positive or equivocal by a FDA-licensed Lyme disease antibody screening test (e.g., EIA). Test Performed by: [place] [address] Tavern Keeper: Hugo Lebron III, M.D. 21 result elmer'd [address] [employer], [place] DEPARTMENT OF PATHOLOGY or Extension 4266 CHECKERING MACHINE OPERATOR CYTOLOGY REPORT PATIENT: CASEY NORTON : 1975 AGE: 35 Y SEX: F ACCT: [id number] PROCEDURE DATE: 11/18/2010 DATE RECEIVED: 11/19/2010 REQUESTING PHYSICIAN: PAYTON BAUTISTA NP LOCATION: [facility] [place] Case No. [id number] PATIENT DATA: [id number] SPECIMEN SUBMITTED: * * (HPVII) THIN PREP W/HPV (LSIL/ASC/VIRY) * * ENDOCERVICAL RELEVANT HISTORY: : 2 Prev.normal: 03/21 Para: 1 Comment: LMP: TWO YEARS AGO SPECIMEN ADEQUACY SATISFACTORY FOR EVALUATION, ENDOCERVICAL TRANSFORMATION ZONE COMPONENT PRESENT GENERAL CATEGORIZATION NEGATIVE FOR INTRAEPITHELIAL LESIONS OR MALIGNANCY RECOMMENDATIONS Thin Prep Pap tests are examined with an FDA approved location-guidance system. ADDITIONAL COPIES SENT TO: Screened/Rescreened Electronically Signed Sign Out Date/Time: by: by: MERE WINTERS, 11/20/2010 08:26 CT(ASCP) The Pap smear is a screening test designed to aid in the detection of premalignant and malignant conditions of the uterine cervix. It is not a diagnostic procedure and should not be used as the sole means of detecting cervical cancer. Both false-positive and false-negative reports do occur. Performed @ [facility], [employer] [address] [place] [id number] [address] [place], [place] DEPARTMENT OF PATHOLOGY or Extension 2618 CHECKERING MACHINE OPERATOR CYTOLOGY REPORT PATIENT: CASEY NORTON : 1975 AGE: 32 Y SEX: F ACCT: [id number] PROCEDURE DATE: 03/27/2008 DATE RECEIVED: 03/28/2008 REQUESTING PHYSICIAN: PAYTON BAUTISTA NP LOCATION: [facility] [place] Case No. [id number] PATIENT DATA: [id number] SPECIMEN SUBMITTED: * * (HPVII) THIN PREP W/HPV (LSIL/ASC/VIRY) * * ENDOCERVICAL RELEVANT HISTORY: LMP: 03/11/2008 : 1 Previous smear date: SPECIMEN ADEQUACY SATISFACTORY FOR EVALUATION, ENDOCERVICAL TRANSFORMATION ZONE COMPONENT PRESENT GENERAL CATEGORIZATION NEGATIVE FOR INTRAEPITHELIAL LESIONS OR MALIGNANCY ADDITIONAL COPIES SENT TO: Screened/Rescreened by: Electronically Signed by: LUIS RODRIGUEZ(ASCP) Signed Date and Time: 04/02/2008 13:46 Thin Prep Pap tests are examined with an FDA-approved location-guidance system (44515). Performed @ [facility] [address] [place] [address] Procedures Date Code Description Status 12/20/2017 [id number] Mammogram Completed 05/06/2015 62901 Insertion of intrauterine device (IUD) Completed 12/07/2014 [id number] Mammogram Completed 11/04/2012 97446 Pulse Oximetry Completed Encounters Type Date Location Provider Dx Diagnosis Office Visit 05/02/2018 [facility] Office Bairon Madrid45.30 Mild persistent 8:40a MD Nazanin asthma, uncomplicated Office Visit 04/08/2018 Main Office Bairon Madrid45.21 Mild intermittent 8:30a MD Nazanin asthma with (acute) exacerbation Office Visit 02/03/2018 Main Office Estela Velásquez Z01.419 Encntr for transcriber exam 8:30a Diana Young (general) (routine) w/o abn findings Office Visit 11/16/2017 Main Office Payton Z12.31 Encntr screen 10:15a [place], mammogram for Afnp-C malignant neoplasm of breast K21.9 Gastro-esophageal reflux disease without esophagitis Z23 Encounter for immunization F32.9 Major depressive disorder, single episode, unspecified F43.22 Adjustment disorder with anxiety Office Visit 12/30/2016 3:45p Main Office Lorena Lane J20.9 Acute bronchitis, HEAT TREAT WORKER unspecified Office Visit 11/30/2016 9:00a [facility] Office Payton F32.9 Major depressive [place], disorder, single Afnp-C episode, unspecified Z12.31 Encntr screen mammogram for malignant neoplasm of breast K21.9 Gastro-esophageal reflux disease without esophagitis Office Visit 07/31/2015 [facility] Kavita Morgan1.9 Gastro-esophageal 4:15p Office Nadia, HEAT TREAT WORKER reflux disease without esophagitis K25.9 Gastric ulcer, unsp as acute or chronic, w/o hemor or perf Office Visit 07/17/2015 Valery Walls K21.9 Gastro-esophageal 4:15p Office Nadia, HEAT TREAT WORKER reflux disease without esophagitis K25.9 Gastric ulcer, unsp as acute or chronic, w/o hemor or perf Office Visit 05/06/2015 Valery Walls Z30.430 Encounter for 4:00p Office Nadia, HEAT TREAT WORKER insertion of intrauterine contraceptive device Office Visit 04/12/2015 Valery Walls Z30.8 Encounter for other 3:15p Office Nadia, HEAT TREAT WORKER contraceptive management Office Visit 03/07/2015 Valery Bridges, 530.81 Esophageal Reflux 1:30p Office OUTREACH CONSULTANT Office Visit 11/20/2014 Valery Cain V70.0 Examination General 3:15p Office Lily, Medical Routine AT [facility] 493.90 Asthma Unspec W/O Status Asthmaticus 311 Depressive Disorder Not Elsewhere Spec V76.2 Screening Malignant Neoplasm Cervix V76.10 Screening For Malignant Neoplasm Breast 626.2 Menstruation Excessive Or Frequent Office Visit 05/08/2014 2:30p Main Office Esme Franklin, 079.99 Viral Infection Afnp-C Unspec Office Visit 02/05/2014 9:30a Main Office Payton Bautista, 311 Depressive Afnp-C Disorder Not Elsewhere Spec 300.09 Anxiety States Other 706.1 Acne Other Office Visit 06/03/2013 9:00a Main Office JAIME Gerard 466.0 Bronchitis Acute 782.9 Skin & Integumentary Tissue Other Symptoms Office Visit 11/04/2012 10:30a [facility] Esme Franklin, 079.99 Viral Infection Afnp-C Unspec Office Visit 08/18/2012 3:45p [facility] [address], 466.0 Bronchitis Acute HEAT TREAT WORKER Office Visit 03/02/2012 4:30p Main Office Payton 311 Depressive [place], Disorder Not Afnp-C Elsewhere Spec Office Visit 06/12/2011 1:40p [facility] Estela Velásquez 493.12 Intrinsic Asthma Diana Young With Acute Exacerbation Office Visit 05/25/2011 2:00p Main Office [address]na [address], 466.0 Bronchitis Acute HEAT TREAT WORKER Office Visit 11/18/2010 10:00a [facility] Payton V72.31 Routine Landscape Architecture Professor [place], Examination Afnp-C 782.9 Skin & Integumentary Tissue Other Symptoms 300.09 Anxiety States Other Office Visit 11/19/2009 1:00p [facility] Payton 311 Depressive [place], Disorder Not Afnp-C Elsewhere Spec Office Visit 02/08/2009 3:00p Main Office L[address]na [address], 311 Depressive HEAT TREAT WORKER Disorder Not Elsewhere Spec Office Visit 12/04/2008 9:15a [facility] Payton 311 Depressive [place], Disorder Not Afnp-C Elsewhere Spec Office Visit 06/27/2008 6:15p Main Office Payton 311 Depressive [place], Disorder Not Afnp-C Elsewhere Spec Office Visit 03/27/2008 2:30p [facility] Payton V72.31 Routine Landscape Architecture Professor [place], Examination Afnp-C V06.5 Tetanus Diphtheria (DT) 626.9 Menstruation & Other Abnormal Bleeding Disorders Unspec V76.2 Screening Malignant Neoplasm Cervix 706.1 Acne Other Office Visit 09/21/2007 6:00p Main Office Payton Bautista, 706.2 Sebaceous Cyst Afnp-C Office Visit 05/27/2007 4:15p Main Office JAIME Gerard 465.9 URI Upper Respiratory Infections Acute Unspec Sites Office Visit 09/29/2006 7:30p Main Office Payton Bautista, V72.31 Routine Landscape Architecture Professor Afnp-C Examination 626.9 Menstruation & Other Abnormal Bleeding Disorders Unspec V77.1 Screening Diabetes Mellitus V82.9 Screening For Unspec Condition 599.7 Hematuria Office Visit 08/18/2006 6:00p Main Office Payton Bautista, 706.1 Acne Other Afnp-C Office Visit 06/30/2006 8:00p Main Office Payton Bautista, 706.1 Acne Other Afnp-C Office Visit 04/26/2006 7:00p Main Office Esme Franklin, 300.4 Dysthymic Disorder Afnp-C 493.00 Asthma Extrinsic Unspecified Plan of Treatment 10/19/2018 - Kavita Zuniga, FNPM54.9 Dorsalgia, dcldjekascqC47.2 Nausea with vomiting, jhsnyfmmufzY76.0 Frequency of micturitionAllComments:Medication Management Patient Understands medications he 's taking? Yes No Are there Barriers to Adherence? Yes No Has the patient been asked about herbal supplements and therapies, andOTC meds? Yes No As always, we strongly encourage a healthy diet and making physical activity a part of your every day life. If you have questions about how or where to start, please contact the office.
[2018-10-25 18:59] VITALS: BP 103/64
--- NOTE | 2018-10-25 19:58 | UC ---
Complaint Female HPI - HPI Summary HPI Summary: 43-year-old female presents with onset of burning with urination, frequency, and suprapubic pressure today. Denies fever, chills, back or flank pain, nausea , vomiting, urgency, hematuria, dyspaeunia, vaginal discharge or itching. - History Of Current Complaint Chief Complaint: UCGU Stated Complaint: BURNING URINATION Time Seen by Provider: 10/25/18 19:18 Hx Obtained From: Patient Pain Intensity: 4 - Allergies/Home Medications Allergies/Adverse Reactions: Allergies Allergy/AdvReac Type Severity Reaction Status Date / Time No Known Allergies Allergy Verified 10/25/18 18:59 Home Medications: Home Medications Omeprazole CAP (NF) [Prilosec CAP* 20 MG] 20 mg PO DAILY 10/25/18 [History Confirmed 10/25/18] PMH/Surg Hx/FS Hx/Imm Hx Previously Healthy: Yes GI/ History: Gastroesophageal Reflux - Surgical History Surgical History: Yes Surgery Procedure, Year, and Place: csection - Family History Known Family History: Positive: Non-Contributory - Social History Occupation: Employed Full-time Lives: With Family Alcohol Use: Occasionally Substance Use Type: None Smoking Status (MU): Never Smoked Tobacco Review of Systems All Other Systems Reviewed And Are Negative: Yes Constitutional: Negative: Fever, Chills Respiratory: Positive: Negative Cardiovascular: Positive: Negative Gastrointestinal: Positive: Abdominal Pain. Negative: Vomiting, Diarrhea, Nausea Genitourinary: Positive: Dysuria, Frequency. Negative: Hematuria, Urgency, Vaginal/Penile Burning, Vaginal/Penile Itching, Vaginal/Penile Discharge, Ulceration/Lesion Musculoskeletal: Positive: Negative Neurological: Positive: Negative Is Patient Immunocompromised?: No Physical Exam - Summary Physical Exam Summary: GENERAL APPEARANCE: Well developed, well nourished, alert and cooperative, and appears to be in no acute distress. CARDIAC: Normal S1 and S2. No S3, S4 or murmurs. Rhythm is regular. There is no peripheral edema, cyanosis or pallor. Extremities are warm and well perfused. Capillary refill is less than 2 seconds. Peripheral pulses intact. LUNGS: Clear to auscultation without rales, rhonchi, wheezing or diminished breath sounds. ABDOMEN: Positive bowel sounds. Soft, nondistended, nontender. No guarding or rebound. No masses or hepatosplenomegally. No CVA tenderness. MUSKULOSKELETAL: ROM intact to all extremities. No joint erythema or tenderness. Normal muscular development. Normal gait. SKIN: Skin normal color, texture and turgor with no lesions or eruptions. Triage Information Reviewed: Yes Vital Signs: Initial Vital Signs Temp 98.1 F 10/25/18 18:56 Pulse 63 10/25/18 18:56 Resp 18 10/25/18 18:56 BP 103/64 10/25/18 18:56 Pulse Ox 100 10/25/18 18:56 Vital Signs Reviewed: Yes Complaint Female Dx - Course Course Of Treatment: 43-year-old female presents with onset of burning with urination, frequency, and suprapubic pressure today. Denies fever, chills, back or flank pain, nausea , vomiting, urgency, hematuria, dyspaeunia, vaginal discharge or itching. Afebrile. Vital signs stable. Exam was overall unremarkable. [id number]-qc-hmcs urinalysis showed some trace lysed blood. Urine culture was obtained and sent. Discussed findings with the patient and offered to treat empirically for UTI while the urine culture was pending or simply treat symptoms pending the urine culture results. Patient is electing not to start antibiotics at this time. She was given a prescription for Pyridium 100 mg 3 times a day 2 days and encouraged to push fluids. She is to follow-up with her primary care provider in 3 days if symptoms persist. Anticipatory guidance and warning symptoms were reviewed with the patient. Verbalizes understanding and agrees with plan of care. - Differential Dx/Diagnosis Differential Diagnosis/HQI/PQRI: Urinary Tract Infection Provider Diagnosis: Dysuria Discharge - Sign-Out/Discharge Documenting (check all that apply): Patient Departure All imaging exams completed and their final reports reviewed: No Studies - Discharge Plan Condition: Stable Disposition: HOME Prescriptions: Phenazopyridine TAB* [Pyridium 100 mg TAB*] 100 mg PO TID #6 tab Patient Education Materials: Dysuria (ED) Referrals: Estela Young MD [Primary Care Provider] - 3 Days (If symptoms persist.) Additional Instructions: Her urine test in the clinic today showed no evidence of a urinary tract infection. We will send the urine for culture to see if any bacteria grow out. If the culture indicates that there is an infection we will contact you in starch on an appropriate antibiotic. Push lots of fluids. Take Pyridium 1 tablet 3 times a day for the next 2 days to help with the burning and pain. Be aware that this medication will turn your urine an orange color. Follow-up with your primary care provider in 3 days if symptoms do not improve. Seek immediate medical attention if you develop fever greater than 100.5 F, have severe abdominal pain, persistent or projectile vomiting, or any worsening of symptoms. - Billing Disposition and Condition Condition: STABLE Disposition: Home
--- NOTE | 2018-10-27 21:15 | UC ---
- Progress Note Progress Note: 10/27/2018 Urine culture final report: no growth No change Olu LOMELI Course/Dx - Diagnoses Provider Diagnoses: Dysuria Discharge - Sign-Out/Discharge Documenting (check all that apply): Post-Discharge Follow Up All imaging exams completed and their final reports reviewed: No Studies - Discharge Plan Condition: Stable Disposition: HOME Prescriptions: Phenazopyridine TAB* [Pyridium 100 mg TAB*] 100 mg PO TID #6 tab Patient Education Materials: Dysuria (ED) Referrals: Estela Young MD [Primary Care Provider] - 3 Days (If symptoms persist.) Additional Instructions: Her urine test in the clinic today showed no evidence of a urinary tract infection. We will send the urine for culture to see if any bacteria grow out. If the culture indicates that there is an infection we will contact you in starch on an appropriate antibiotic. Push lots of fluids. Take Pyridium 1 tablet 3 times a day for the next 2 days to help with the burning and pain. Be aware that this medication will turn your urine an orange color. Follow-up with your primary care provider in 3 days if symptoms do not improve. Seek immediate medical attention if you develop fever greater than 100.5 F, have severe abdominal pain, persistent or projectile vomiting, or any worsening of symptoms. - Billing Disposition and Condition Condition: STABLE Disposition: Home
== END 2018-10-25 20:07 | disposition home or self-care (01) ==
LOC: UCEAST 18:30
DX: R30.0 Dysuria (principal); R35.0 Frequency of micturition; K21.9 Gastro-esophageal reflux disease without esophagitis; Z79.899 Other long term (current) drug therapy
CPT/HCPCS: 81003; 87086; 99211; G0463